=== PATIENT | male | born 1950 | race Caucasian/White ===

== ENCOUNTER 2023-06-01 10:59 | Emergency (ER) | payer MEDICARE, SELFPAY ==
[2023-06-01 11:09] VITALS: BP 127/58
[2023-06-01 11:46] LABS: % Basophils 0.5 % (0-2); % Eosinophils 2.4 % (0-6); % Immature Granulocytes 0.4 % (0-0.5); % Lymphocytes 22.9 % (20.5-51.1); % Monocytes 6.9 % (1.7-9.3); % Neutrophils 66.9 % (42.2-75.2); Absolute Basophils 0.1 10^3/uL (0-0.2); Absolute Eosinophils 0.3 10^3/uL (0-0.7); Absolute Lymphocytes 2.5 10^3/uL (1.2-3.4); Absolute Monocytes 0.7 10^3/uL (0.1-0.6); Absolute Neutrophils 7.2 10^3/uL (1.4-6.5); Hematocrit 34.3 % (39.0-52.0); Hemoglobin 10.8 g/dL (13.0-18.0); Mean Corp Hgb Conc. 31.5 g/dL (33.0-37.0); Mean Corpuscular Hgb 25.5 pg (27.0-31.0); Mean Corpuscular Volume 80.9 fL (80.0-94.0); Mean Platelet Volume 8.9 fL (7.4-10.4); Nucleated Red Blood Cells % 0 % (-); Platelet Count 296 10^3/uL (130-400); Red Blood Cell Count 4.24 10^6/uL (4.70-6.10); Red Cell Dist. Width 16.3 % (11.5-14.5); White Blood Cell Count 10.7 10^3/uL (4.8-10.8)
[2023-06-01 11:58] LABS: ALT (SGPT) 18 U/L (0-50); AST (SGOT) 21 U/L (17-59); Albumin 4.3 g/dl (3.5-5.0); Alkaline Phosphatase 124 U/L (38-126); Blood Urea Nitrogen 19 mg/dl (9-20); Calcium 9.2 mg/dl (8.4-10.2); Carbon Dioxide 28 mmol/L (22-30); Chloride 101 mmol/L (98-107); Glucose 161 mg/dl (70-99); Potassium 4.2 mmol/L (3.5-5.1); Sodium 134 mmol/L (135-145); Total Bilirubin 0.5 mg/dl (0.2-1.3); Total Protein 7.7 g/dl (6.3-8.2); eGFR > 60.00
[2023-06-01 12:06] LABS: Troponin I < 0.012 ng/ml
--- NOTE | 2023-06-01 12:15 | ED.GENMED ---
History of Present Illness
General
Chief Complaint: Abdominal Pain
Source: patient
Exam Limitations: none
Time Seen by Provider: 06/01/23 12:08
Nursing documentation reviewed up to this point in time: agreed with
Travel History
Have you had any contact with someone who has COVID-19?: No
Do you have any symptoms of coronavirus? Fever > 100 degrees, chills, cough, shortness of breath, sore throat, loss of taste or smell, muscle aches, or headache?: No
History of Present Illness
History of Present Illness:
72-year-old male with history of COPD, A-fib on clopidogrel and aspirin, CAD, HTN, HLD, [place] with cardiac stents x 3 on 08/24/2022, NIDDM presents stating for the past 3 days he has had indigestion, belching a lot. He denies chest pain or trouble
breathing. He states he had similar symptoms when he had his heart attack. He denies feeling weak or dizzy. Denies sweating, nausea or vomiting.
Past History
Past History
ED Past Medical History: Arrthythmia (Atrial fib), CAD, Cancer (Prostate, mets to ribs), CHF, COPD, HTN, Hypercholesterolemia, NIDDM, [place] and Psychiatric (Depression. )
ED Past Surgical History: Cardiac (stent X 3), Orthopedic (Bilateral knee surgery), Tonsilectomy and Urological (Prostatectomy 14 yrs ago)
Social History
Tobacco: Former smoker (2ppd)
Alcohol: None
Drug: None and Other
Personal:
Living: with family
Employment: Retired
Family History
Family History: Other (Noncontributory)
Review of Systems
Review of Systems
Allergies reviewed?: Yes
All Other Systems: ROS reviewed and negative except as documented in HPI and ROS
Constitutional: Denies fever or fatigue
Cardiac: Denies chest pain, diaphoresis or palpitations
ABD/GI: Denies abdominal pain ('Just a lot of belching.'), nausea, vomiting, diarrhea, constipated or anorexia
: Denies dysuria, frequency or difficulty voiding
Musculoskeletal: Denies edema
Skin: Reports no symptoms
Neurological: Reports no symptoms
Phy Exam
Physical Exam
Physical Exam:
GENERAL: No acute distress. A&Ox3.
CONSTITUTIONAL: Afebrile.
EYES: Clear, conjunctivae normal
ENMT: moist mucus membranes, Pharynx nl
RESPIRATORY: Regular respirations, nonlabored, lungs clear.
CARDIOVASCULAR: Regular rate and rhythm, no murmurs, no rubs.
GI: Soft, nontender, normal BS
MUSCULOSKELETAL: Moves with ease. Well perfused.
SKIN: Warm, dry, pink
PSYCH: Normal mood and affect. Well kept, interactive and appropriate
NEUROLOGIC: Awake, alert and oriented. No focal neurological deficits
Course
Orders/Labs/Results
Orders:
Orders
06/01/23 11:09
Electrocardiogram (*1) Urgent
Reason for Study: Chest Pain
EKG- Treatment ONCE
06/01/23 11:28
Complete Blood Count/With Diff Urgent
Comprehensive Metabolic Panel Urgent
Troponin I Urgent
Abnormal Lab Results
06/01/23
11:28
RBC 4.24 L 10^6/uL
(4.70-6.10)
Hgb 10.8 L g/dL
(13.0-18.0)
Hct 34.3 L %
(39.0-52.0)
MCH 25.5 L pg
(27.0-31.0)
MCHC 31.5 L g/dL
(33.0-37.0)
RDW 16.3 H %
(11.5-14.5)
Absolute Neuts (auto) 7.2 H 10^3/uL
(1.4-6.5)
Absolute Monos (auto) 0.7 H 10^3/uL
(0.1-0.6)
Sodium 134 L mmol/L
(135-145)
Glucose 161 H mg/dl
(70-99)
06/01/23 11:28
06/01/23 11:28
Vital Signs
Initial and Last Documented VS:
Initial Vital Signs
Temp Pulse BP Pulse Ox
98.0 F 76 127/58 97
06/01/23 11:09 06/01/23 11:09 06/01/23 11:09 06/01/23 11:09
Last Documented Vital Signs
Temp Pulse BP Pulse Ox
98.0 F 76 127/58 97
06/01/23 11:09 06/01/23 11:09 06/01/23 11:09 06/01/23 11:09
MDM/Problems Addressed
MDM/Problems Addressed:
72-year-old male with history of COPD, A-fib on clopidogrel and aspirin, CAD, HTN, HLD, [place] with cardiac stents x 3 on 08/24/2022, NIDDM presents stating for the past 3 days he has had indigestion, belching a lot. He denies chest pain or trouble
breathing. He states he had similar symptoms when he had his heart attack. He denies feeling weak or dizzy. Denies sweating, nausea or vomiting.
EKG sinus rhythm with PACs, RBBB, left axis deviation.
06/01/2023 1211 PM
CBC with no clinically significant abnormality
CMP with no clinically significant abnormality
Troponin normal
Symptoms have been present for 2-1/2 days, no reason to repeat troponin.
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
Patient instructed to continue his pantoprazole, follow-up with PCP or GI if indigestion persists.
*Pulse Oximetry
Patient hypoxic: no
*EKG
EKG Intrepretation Date: 06/01/23
Interpretation: abnormal
Rate: normal
Rhythm: sinus and PAC's
[place]: left axis deviation
Interval: normal interval
QRS Pattern: right bundle branch block
Ischemia: no ischemia
*Critical Care Note
Total Time (30-74mins, 75-104mins- exclusive of procedures): Not Applicable
ED Attending Note
-
Portions of this chart may have been created with voice recognition software.� Occasional wrong word or��sound alike� substitutions may have occurred due to the inherent limitations of voice recognition software.
Discharge Plan
Departure
Patient Disposition: Home (Routine Discharge)
Date of Disposition: 06/01/23
Time of Disposition: 12:42
Patient with high blood pressure during this ER visit?: No
Condition: Good
Discharge Problem:
Indigestion
Instructions: Dyspepsia (DC)
Prescriptions:
No Action
oxycodone 10 mg Tablet
10 mg PO BID
Rx Instructions:
11/13/2022, patient last filled medication for 120 tablets on 10/28/2022
glipizide 10 mg Tablet
5 mg PO DAILY
omega-3 acid ethyl esters 1 gram capsule
1 g PO BID
glipizide 10 mg tablet
10 mg PO QPM
Gemtesa 75 mg Tablet
75 mg PO DAILY
metoprolol succinate [Toprol XL] 25 mg tablet extended release 24 hr
25 mg PO BID
Trijardy XR 25-5-1,000 mg Tablet, Ir - Er, Biphasic 24hr
1 tab PO DAILY
furosemide 40 mg Tablet
40 mg PO DAILY
atorvastatin 40 mg Tablet
40 mg PO QPM
amiodarone 200 mg Tablet
200 mg PO BID
clopidogrel 75 mg Tablet
75 mg PO DAILY
clotrimazole-betamethasone 1-0.05 % Cream
1 applic TOPICAL HS
ergocalciferol (vitamin D2) 1,250 mcg (50,000 unit) Capsule
1,250 mcg PO DIAZ
magnesium hydroxide [Milk of Magnesia] 400 mg/5 mL Suspension
30 ml PO DAILY PRN (Reason: constipation)
pantoprazole 40 mg Tablet,Delayed Release (Dr/Ec)
40 mg PO BID
lisinopril 2.5 mg Tablet
2.5 mg PO DAILY
aspirin 81 mg Tablet,Chewable
81 mg PO DAILY Qty: 30 0RF
Referrals:
Steven Peace MD [Family Provider] - Follow up in 2-3 days
Jaylyn Diaz, DO [Active] - As needed
Activity Restrictions/Additional Instructions:
As we discussed, your workup here today shows nothing worrisome, specifically no indication of a heart attack. It sounds like you are having indigestion, continue your pantoprazole twice a day, if you continue to have indigestion, notify your
primary doctor and/or make an appointment with the GI doctor.
Interventions
Interventions:
*Risk Screen - Suicide Last Done: 06/01/23 12:17
*General Assessment Last Done: 06/01/23 12:17
*Neglect/Abuse Screening Last Done: 06/01/23 12:17
ED- Fall Risk Assessment Last Done: 06/01/23 13:08
*ED COVID-19 Vaccine History Last Done: 06/01/23 11:17
*Nursing Disposition Last Done: 06/01/23 13:08
YR-Qcxckd-Rqbiakabda Assessment Last Done: 06/01/23 12:18
Discharge Date and Time
Discharge Date/Time: 06/01/23 13:09
== END 2023-06-01 13:09 | disposition home or self-care (01) ==
LOC: EMR 10:59
PROVIDERS: EMERGENCY PHYSICIAN Emergency Medicine; FAMILY PHYSICIAN Family Medicine
DX: K30 Functional dyspepsia (principal); I48.91 Unspecified atrial fibrillation; I50.9 Heart failure, unspecified; I25.10 Atherosclerotic heart disease of native coronary artery without angina pectoris; I11.0 Hypertensive heart disease with heart failure; Z87.891 Personal history of nicotine dependence; Z79.01 Long term (current) use of anticoagulants
CPT/HCPCS: 99284; 80053; 84484; 85025; 93005

== ENCOUNTER → 2023-08-17 15:49 | Outpatient (REF) | payer MEDICARE, SELFPAY | LOC: HWRAD 15:49 | PROVIDERS: ATTENDING PHYSICIAN Physician Assistant Medical | DX: M25.552 Pain in left hip (principal) | CPT/HCPCS: 73502 ==

== ENCOUNTER 2024-01-25 16:03 | Emergency (ER) | payer MEDICARE, SELFPAY ==
[2024-01-25 16:17] VITALS: BP 130/66
--- NOTE | 2024-01-25 16:18 | ED.SKININJ ---
HPI-Injury
<Djeah Arora NP - Last Filed: 01/25/24 16:26>
General
Chief Complaint: Skin Problem
Time Seen by Provider: 01/25/24 19:38
<Jaylene Birch PA-C - Last Filed: 01/26/24 01:15>
General
Source: patient
Exam Limitations: none
Nursing documentation reviewed up to this point in time: agreed with
History of Present Illness-Injury
Initial Injury comments:
pt i a 73 y/o M
h/o niddm, afib on eliquis
cad
here with L forearm wounds since 01/11 not healing despite abx
pt says he fell and scraped his arm in 2 places causing laceration
he wrapped it tight for 2 days and then went to urgent care got keflex for 7 days (tid)
he has been changing dressing, which he and his have been wrapping rather tightly once a day. pt's was concerned about the yellowish color of the tissue int he center of the wound and that his arm was a little swollen and pt saw his PCP
today and was sent for eval for possible admission
they are concenred 'i am septic.'
pt has no ill symptoms, no fever, chills, pain, weakness, numbness
he has been applying bacitracin to the wound and also trying to dry it out at times.
ED Provider Triage
<Dejah Arora NP - Last Filed: 01/25/24 16:26>
-
Patient seen by provider in Triage?: Seen in Triage
Attestation: A medical screening examination has been initiated by a qualified medical provider. Based on the assessment performed at this time, it has been determined that an emergent medical condition may exist and the patient has been informed
that further medical evaluation and possible additional diagnostic testing may be needed.
HPI: 73-year-old NIDDM presents for wound left forearm from a fall when he struck the forearm on door frame two weeks ago 01/11, Went to , given Keflex 500 TID x 7 days (was on Levaquin for PNA the previous week), wound care. States area is
improving as hand is no longer swollen as it was. Denies fever/nausea. Here because concerned for sepsis. This a.m. 'was bubbling up yellow pus.' Called PCP Dr. Sosa who saw him today and sent here.
GENERAL: Alert , in no apparent distress, afebrile.
ENT: No visible abnormalities.
LUNGS: No acute respiratory distress
NEUROLOGICAL: Alert and oriented
SKIN: Left forearm with Two wounds with multiple purulent blisters, underlying erythema. Mild swelling, distal n/v intact.
MUSCULOSKELETAL: Moving extremities normally
PSYCH: Normal and appropriate interaction.
This is a medical evaluation conducted in person to initiate diagnostic evaluation and provide initial therapeutics. Please see further documentation by the treating clinician.
Past History
<Dejah Arora, KILN MECHANIC - Last Filed: 01/25/24 16:26>
Past History
ED Past Medical History: Arrthythmia (Atrial fib), CAD, Cancer (Prostate, mets to ribs), CHF, COPD, HTN, Hypercholesterolemia, NIDDM, [place] and Psychiatric (Depression. )
ED Past Surgical History: Cardiac (stent X 3), Orthopedic (Bilateral knee surgery), Tonsilectomy and Urological (Prostatectomy 14 yrs ago)
Social History
Tobacco: Former smoker (2ppd)
Alcohol: None
Drug: None and Other
Personal:
Living: with family
Employment: Retired
Family History
Family History: Other (Noncontributory)
Review of Systems
<Jaylene Birch PA-C - Last Filed: 01/26/24 01:15>
Review of Systems
Allergies reviewed?: Yes
All Other Systems: Not applicable
Phy Exam
<Jaylene Birch PA-C - Last Filed: 01/26/24 01:15>
Physical Exam
Physical Exam:
GENERAL: Alert , in no apparent distress
EYE: pupils equal and reactive
NECK: Supple
ENT: o/p clr, mmm.
CARDIAC: Regular rate and rhythm .
LUNGS: Clear breath sounds bilaterally, no acute respiratory distress, no wheezes/rales/rhonchi
ABDOMEN: Soft, without focal tenderness, no r/g, no cvat, normal bowel sounds
NEUROLOGICAL: Alert and oriented, no focal neuro deficits
SKIN: Warm and dry,
pt has 2 open wound to L dorsal forearm, arc shpaed superior wound approx 5 cm and avlsion of skin distally approx 4 cm
there is centralized yellowish tissue
minimal surrounding erythema around both wounds approx 3 mm margin; no significant streaking
the distal forearm itself is slightly diffusely swollen/puffy
normal pulse snesation
and compartment is soft
MUSCULOSKELETAL: mild forearm edema, well perfused. neg kelli's sign
PSYCH: Normal and appropriate interaction.
Course
<Dejah Arora, KILN MECHANIC - Last Filed: 01/25/24 16:26>
Orders/Labs/Results
Orders:
Orders
01/25/24 16:45
Complete Blood Count/With Diff Urgent
Comprehensive Metabolic Panel Urgent
01/25/24 20:23
Wound Culture [Wound/Abscess/Other Culture] Urgent
JOSEPH Source: Skin Surface
Specimen Description:
Date Specimen was Collected: 01/25/24
Time Specimen was Collected: 20:21
Comment: Left forearm
Abnormal Lab Results
01/25/24
16:45
WBC 12.0 H 10^3/uL
(4.8-10.8)
RBC 4.08 L 10^6/uL
(4.70-6.10)
Hgb 11.8 L g/dL
(13.0-18.0)
Hct 35.0 L %
(39.0-52.0)
RDW 15.5 H %
(11.5-14.5)
Abs Immat Gran (auto) 0.1 H 10^3/uL
(0-0.05)
Absolute Neuts (auto) 9.6 H 10^3/uL
(1.4-6.5)
Absolute Monos (auto) 0.7 H 10^3/uL
(0.1-0.6)
Neutrophils % 79.7 H %
(42.2-75.2)
Lymphocytes % 13.3 L %
(20.5-51.1)
Carbon Dioxide 21 L mmol/L
(22-30)
BUN 22 H mg/dl
(9-20)
Glucose 245 H mg/dl
(70-99)
Alkaline Phosphatase 146 H U/L
(38-126)
01/25/24 16:45
01/25/24 16:45
Vital Signs
Initial and Last Documented VS:
Initial Vital Signs
Temp Pulse Resp BP Pulse Ox
98.7 F 63 20 130/66 97
01/25/24 16:17 01/25/24 16:17 01/25/24 16:17 01/25/24 16:17 01/25/24 16:17
Last Documented Vital Signs
Temp Pulse Resp BP Pulse Ox
98.1 F 71 20 125/60 98
01/25/24 18:44 01/25/24 18:44 01/25/24 18:44 01/25/24 18:44 01/25/24 18:44
[place];Jaylene Birch PA-C - Last Filed: 01/26/24 01:15>
Orders/Labs/Results
Orders:
Orders
01/25/24 16:45
Complete Blood Count/With Diff Urgent
Comprehensive Metabolic Panel Urgent
01/25/24 20:23
Wound Culture [Wound/Abscess/Other Culture] Urgent
JOSEPH Source: Skin Surface
Specimen Description:
Date Specimen was Collected: 01/25/24
Time Specimen was Collected: 20:
Comment: Left forearm
Abnormal Lab Results
01/25/24
16:45
WBC 12.0 H 10^3/uL
(4.8-10.8)
RBC 4.08 L 10^6/uL
(4.70-6.10)
Hgb 11.8 L g/dL
(13.0-18.0)
Hct 35.0 L %
(39.0-52.0)
RDW 15.5 H %
(11.5-14.5)
Abs Immat Gran (auto) 0.1 H 10^3/uL
(0-0.05)
Absolute Neuts (auto) 9.6 H 10^3/uL
(1.4-6.5)
Absolute Monos (auto) 0.7 H 10^3/uL
(0.1-0.6)
Neutrophils % 79.7 H %
(42.2-75.2)
Lymphocytes % 13.3 L %
(20.5-51.1)
Carbon Dioxide 21 L mmol/L
(22-30)
BUN 22 H mg/dl
(9-20)
Glucose 245 H mg/dl
(70-99)
Alkaline Phosphatase 146 H U/L
(38-126)
01/25/24 16:45
01/25/24 16:45
Vital Signs
Initial and Last Documented VS:
Initial Vital Signs
Temp Pulse Resp BP Pulse Ox
98.7 F 63 20 130/66 97
01/25/24 16:17 01/25/24 16:17 01/25/24 16:17 01/25/24 16:17 01/25/24 16:17
Last Documented Vital Signs
Temp Pulse Resp BP Pulse Ox
98.1 F 71 20 125/60 98
01/25/24 18:44 01/25/24 18:44 01/25/24 18:44 01/25/24 18:44 01/25/24 18:44
<Jaylene Birch PA-C - Last Filed: 01/26/24 01:15>
MDM/Problems Addressed
Differential Diagnosis Includes:
wound infection, delayed wound healing
MDM/Problems Addressed:
73 y/o M
diabetic
2+ weeks ago sustained 2 lacerations to forearm left arm from fall
had it wrapped for a few days and went to urgent care
had been on levaquin for pna just prior
got keflex
has had a few evaluations by PCP and sent here for some yellowish discoloration and soem sweling to the arm, as well as minor redness
patient is telling me th rednes actually looks better than it was and that the swelling as been there and hasn't woresned
he has some itching and is trying not to scratch
no systemic symptoms
well apeparing
he has 2 open wounds to lefft forearm, one is skin tear with the flap curled back wth central yellowish nonweeping tissue
also with wound to lowre forearm that has same appaernace int he center
minimal if any redness around each wound
no streaking redness
mild edema
afebrile
well appearing
appreciate mild leukocytosis and hyperglycemia
hwoever at this point is not concerned to be septic
i had the ED attending dr. telles evaluate the wounds becuase placing him on abx would be 3rd abx this month and that wuld be risky for causing c diff
cultured the wound
at this point the wounds appear to have the epitheliaziation that is typical with delayed healing
will hold off on another round of abx
wound recheck in 2 days
wound care center info given
<Jaylene Birch PA-C - Last Filed: 01/26/24 01:15>
*Critical Care Note
Total Time (30-74mins, 75-104mins- exclusive of procedures): Not Applicable
ED Attending Note
<Dejah Arora KILN MECHANIC - Last Filed: 01/25/24 16:26>
-
Portions of this chart may have been created with voice recognition software.� Occasional wrong word or��sound alike� substitutions may have occurred due to the inherent limitations of voice recognition software.
Discharge Plan
Departure
Patient Disposition: Home (Routine Discharge)
Date of Disposition: 01/25/24
Time of Disposition: 20:15
Patient with high blood pressure during this ER visit?: No
Condition: Fair
Covid-19: Not Applicable
Discharge Problem:
Delayed wound healing
Instructions: Wound Care (DC)
Prescriptions:
No Action
oxycodone 10 mg Tablet
10 mg PO BID
Rx Instructions:
11/13/2022, patient last filled medication for 120 tablets on 10/28/2022
glipizide 10 mg Tablet
5 mg PO DAILY
omega-3 acid ethyl esters 1 gram capsule
1 g PO BID
glipizide 10 mg tablet
10 mg PO QPM
Gemtesa 75 mg Tablet
75 mg PO DAILY
metoprolol succinate [Toprol XL] 25 mg tablet extended release 24 hr
25 mg PO BID
Trijardy XR 25-5-1,000 mg Tablet, Ir - Er, Biphasic 24hr
1 tab PO DAILY
furosemide 40 mg Tablet
40 mg PO DAILY
atorvastatin 40 mg Tablet
40 mg PO QPM
amiodarone 200 mg Tablet
200 mg PO BID
clopidogrel 75 mg Tablet
75 mg PO DAILY
clotrimazole-betamethasone 1-0.05 % Cream
1 applic TOPICAL HS
ergocalciferol (vitamin D2) 1,250 mcg (50,000 unit) Capsule
1,250 mcg PO DIAZ
magnesium hydroxide [Milk of Magnesia] 400 mg/5 mL Suspension
30 ml PO DAILY PRN (Reason: constipation)
pantoprazole 40 mg Tablet,Delayed Release (Dr/Ec)
40 mg PO BID
lisinopril 2.5 mg Tablet
2.5 mg PO DAILY
aspirin 81 mg Tablet,Chewable
81 mg PO DAILY Qty: 30 0RF
Referrals:
[facility] [[facility]] - Follow up in 2-3 days
Activity Restrictions/Additional Instructions:
YOUR WOUNDS DO NOT APPEAR SIGNFIICANTLY INFECTED TODAY - WE ARE CAUTIOUS TO PRESCRIBE ANOTHER ANTIBIOTIC SINCE YOU HAVE BEEN ON 2 ANTIBIOTICS THIS MONTH.
PLEASE CONTINUE WOUND CARE
DO NOT WRAP YOUR ARM TOO TIGHT
ELEVATE WHEN YOU ARE ABLE TO
WATCH THE SURROUNDING REDNESS, PLEASE SEE YOUR DOCTOR IN 2 DAYS TO HAVE ANOTHER WOUND CHECK
IF THE REDNESS IS EXTENDING OR YOU DEVELOP FEVER OR PAIN YOU SHOULD RETURN TO THE ER AND AT THAT POINT WE WILL CONSIDER ANTIBIOTICS OR ADMISSION IF NECESARY
THE YELLOW[place] TISSUE CAN BE PART OF THE HEALING PROCESS
F YOU START HAVING WORSE WEEPING DRAINAGE OR SURROUNDING RENDESS, THEN RETURN.
CONSIDER SEEING THE WOUND CENTER FOR FOLLOW UP
YOUR BLOOD SUGAR WAS HIGH - BE SURE TO DRINK WATER TO HELP THIS, AND AVOID SUGARY FOODS AND DRINKS;
Interventions
Interventions:
*Risk Screen - Suicide Last Done: 01/25/24 16:17
*General Assessment Last Done: 01/25/24 16:17
*Neglect/Abuse Screening Last Done: 01/25/24 16:17
ED- Fall Risk Assessment Last Done: 01/25/24 20:20
*ED COVID-19 Vaccine History Last Done: 01/25/24 20:20
*Nursing Disposition Last Done: 01/25/24 20:52
ED-Skin Assessment Last Done: 01/25/24 20:52
Discharge Date and Time
Discharge Date/Time: 01/25/24 20:54
Print Language: MONGOLIAN
[2024-01-25 16:58] LABS: % Basophils 0.2 % (0-2); % Eosinophils 0.6 % (0-6); % Immature Granulocytes 0.5 % (0-0.5); % Lymphocytes 13.3 % (20.5-51.1); % Monocytes 5.7 % (1.7-9.3); % Neutrophils 79.7 % (42.2-75.2); Absolute Eosinophils 0.1 10^3/uL (0-0.7); Absolute Immature Granulocytes 0.1 10^3/uL (0-0.05); Absolute Lymphocytes 1.6 10^3/uL (1.2-3.4); Absolute Monocytes 0.7 10^3/uL (0.1-0.6); Absolute Neutrophils 9.6 10^3/uL (1.4-6.5); Hemoglobin 11.8 g/dL (13.0-18.0); Mean Corp Hgb Conc. 33.7 g/dL (33.0-37.0); Mean Corpuscular Hgb 28.9 pg (27.0-31.0); Mean Corpuscular Volume 85.8 fL (80.0-94.0); Mean Platelet Volume 8.9 fL (7.4-10.4); Nucleated Red Blood Cells % 0 % (-); Platelet Count 221 10^3/uL (130-400); Red Blood Cell Count 4.08 10^6/uL (4.70-6.10); Red Cell Dist. Width 15.5 % (11.5-14.5)
[2024-01-25 17:25] LABS: ALT (SGPT) 50 U/L (0-50); AST (SGOT) 33 U/L (17-59); Alkaline Phosphatase 146 U/L (38-126); Blood Urea Nitrogen 22 mg/dl (9-20); Calcium 8.9 mg/dl (8.4-10.2); Carbon Dioxide 21 mmol/L (22-30); Chloride 100 mmol/L (98-107); Glucose 245 mg/dl (70-99); Potassium 4.3 mmol/L (3.5-5.1); Sodium 135 mmol/L (135-145); Total Bilirubin 0.4 mg/dl (0.2-1.3); Total Protein 6.8 g/dl (6.3-8.2); eGFR > 60.00
[2024-01-25 18:44] VITALS: BP 125/60
== END 2024-01-25 20:54 | disposition home or self-care (01) ==
LOC: EMR 16:03
PROVIDERS: Registered Nurse; EMERGENCY PHYSICIAN Emergency Medicine; FAMILY PHYSICIAN Family Medicine
DX: S51.809A Unspecified open wound of unspecified forearm, initial encounter (principal); W19.XXXA Unspecified fall, initial encounter; I48.91 Unspecified atrial fibrillation; I25.10 Atherosclerotic heart disease of native coronary artery without angina pectoris; I11.0 Hypertensive heart disease with heart failure; I50.9 Heart failure, unspecified; E78.00 Pure hypercholesterolemia, unspecified; E11.65 Type 2 diabetes mellitus with hyperglycemia; J44.9 Chronic obstructive pulmonary disease, unspecified; Z79.01 Long term (current) use of anticoagulants; Z87.891 Personal history of nicotine dependence; Z90.79 Acquired absence of other genital organ(s); Z95.5 Presence of coronary angioplasty implant and graft
CPT/HCPCS: 99283; 80053; 85025; 87070; 87205

== ENCOUNTER → 2024-01-28 08:13 | Outpatient (REF) | payer MEDICARE, SELFPAY | LOC: WOUND 08:13 | PROVIDERS: ATTENDING PHYSICIAN Surgery; FAMILY PHYSICIAN Family Medicine | DX: S50.812A Abrasion of left forearm, initial encounter (principal); I25.10 Atherosclerotic heart disease of native coronary artery without angina pectoris; E11.8 Type 2 diabetes mellitus with unspecified complications; Z95.5 Presence of coronary angioplasty implant and graft; Z72.0 Tobacco use; W19.XXXA Unspecified fall, initial encounter | CPT/HCPCS: 99203 ==

== ENCOUNTER → 2024-02-16 12:57 | Outpatient (REF) | payer MEDICARE, SELFPAY | LOC: HWRCS 12:57 | PROVIDERS: ATTENDING PHYSICIAN Internal Medicine Cardiovascular Disease; FAMILY PHYSICIAN Family Medicine | DX: I25.5 Ischemic cardiomyopathy (principal) | CPT/HCPCS: 93306 ==

== ENCOUNTER → 2024-09-02 15:32 | Outpatient (REF) | payer OTHER, SELFPAY | LOC: HWRAD 15:32 | PROVIDERS: ATTENDING PHYSICIAN Physician Assistant Medical; FAMILY PHYSICIAN Family Medicine | DX: M25.551 Pain in right hip (principal); M54.50 Low back pain, unspecified | CPT/HCPCS: 72110; 73502 ==